=== PATIENT | female | born 1965 | race Caucasian/White ===

== ENCOUNTER 2017-06-02 07:27 | Day surgery (SDC) | payer BC ==
[2017-06-02] MEDS ORDERED: PROPOFOL 500 MG/50 ML EMU IV ONE (08:14)
[2017-06-02 08:52] VITALS: TEMP 97.2
[2017-06-02 09:06] VITALS: BP 128/82; PULSE 63; RESP 18; O2SAT 100
== END 2017-06-02 09:24 | disposition home or self-care (01) ==
LOC: SURG 07:27
PROVIDERS: ATTEND Surgery
DX: Z12.11 Encounter for screening for malignant neoplasm of colon (principal); Z86.010 Personal history of colon polyps
CPT/HCPCS: J2704

== ENCOUNTER 2017-12-04 17:10 | Observation (INO) | payer BC ==
[2017-12-04] MEDS ORDERED: ONDANSETRON HCL 4 MG/2 ML SOL ONE (17:27)
[2017-12-04] MEDS ORDERED: MORPHINE SULFATE 10 MG/ML SOL ONE (17:27)
[2017-12-04] MEDS ORDERED: MORPHINE SULFATE 10 MG/ML SOL IV ONE (17:29)
[2017-12-04] MEDS ORDERED: ONDANSETRON HCL 4 MG/2 ML SOL IV ONE (17:30)
[2017-12-04] MEDS: SODIUM CHLORIDE 0.9% FLUSH 10 ML SOL IV PRN ×3 (17:31→22:19)
[2017-12-04] MEDS: SODIUM CHLORIDE 0.9% 1000ML 1,000 ML IV SCH ×2 (17:32→21:46)
[2017-12-04 17:42] LABS: ALBUMIN 3.3 gm/dl (3.4-5.0); CALCIUM 9.3 mg/dl (8.5-10.1); POTASSIUM 3.7 mMol/L (3.5-5.1)
[2017-12-04 18:45] VITALS: RESP 16
[2017-12-04] MEDS ORDERED: KETOROLAC TROMETHAMINE 30 MG/ML SOL IV ONE (19:02)
[2017-12-04] MEDS ORDERED: KETOROLAC TROMETHAMINE 30 MG/ML SOL ONE (19:06)
[2017-12-04] MEDS ORDERED: APAP/HYDROCODONE 325/5 TAB PO PRN (21:13)
[2017-12-04] MEDS ORDERED: PROMETHAZINE HYDROCHLORIDE 25 MG/ML SOL IV PRN (21:15)
[2017-12-04] MEDS ORDERED: LEVOFLOXACIN 25 MG/ML 750 MG in SODIUM CHLORIDE 0.9% 50 ML 50 ML IV SCH (21:15)
[2017-12-04] MEDS ORDERED: CODEINE PHOSPHATE PO PRN (21:30)
[2017-12-04] MEDS ORDERED: ALBUTEROL HFA 60 PUFF/INHALER INH PRN (21:30)
[2017-12-04] MEDS ORDERED: BENZONATATE 200 MG SGL PO PRN (21:30)
[2017-12-04] MEDS ORDERED: [UNRECOGNIZED DRUG - OTHER] PO PRN (21:30)
[2017-12-04] MEDS ORDERED: GUAIFENESIN PO PRN (21:30)
[2017-12-04] MEDS ORDERED: LEVOFLOXACIN 25 MG/ML SOL IV ONE (21:32)
[2017-12-05] MEDS: SODIUM CHLORIDE 0.9% 1000ML 1,000 ML IV SCH ×2 (00:19→00:20)
[2017-12-05] MEDS ORDERED: ALOE VERA NAS SCH (09:00)
[2017-12-05] MEDS ORDERED: GLYCERIN NAS SCH (09:00)
[2017-12-05] MEDS ORDERED: FLUTICASONE PROPIONATE INH SCH (09:00)
[2017-12-05] MEDS ORDERED: Non-Formulary Medication MISC (Fluticasone/Salmeterol 250/50 1 PUFF) INH SCH (09:00)
[2017-12-05] MEDS ORDERED: FISH OIL 500 MG CAP PO SCH (09:00)
[2017-12-05] MEDS ORDERED: CALCIUM CARBONATE 500 MG TAB PO SCH (09:00)
[2017-12-05] MEDS ORDERED: MULTIVITAMIN2 1 EA TAB PO SCH (09:00)
[2017-12-05] MEDS ORDERED: VITAMIN D PO SCH (09:00)
[2017-12-05] MEDS ORDERED: FLUTICASONE PROPIONATE SPR NAS SCH (10:00)
[2017-12-05] MEDS ORDERED: CODEINE/GUAIFENESIN 5 ML ML PO PRN ×2 (10:00)
[2017-12-05] MEDS ORDERED: FLUTICASONE/SALMETEROL 250/50 1 PUFF DSK INH SCH (10:00)
[2017-12-05] MEDS ORDERED: CHOLECALCIFEROL 1,000 IU TAB PO SCH (10:15)
[2017-12-05 12:30] VITALS: BP 135/88; PULSE 81; TEMP 98.6; O2SAT 99
[2017-12-05] MEDS ORDERED: LEVOFLOXACIN 750MG/150 ML (PREMIX) IV SCH (21:00)
[2017-12-05] MEDS ORDERED: PREDNISONE 20 MG TAB PO SCH (21:00)
== END 2017-12-05 14:45 | disposition home or self-care (01) ==
LOC: ED 17:10 → UNDOADMOB 20:39 → ACUTE CARE 20:39
PROVIDERS: ADMIT Family Medicine; ATTEND Family Medicine
DX: J18.9 Pneumonia, unspecified organism (principal); R10.31 Right lower quadrant pain
CPT/HCPCS: 74178; 80053; 85610; 96365; 96374; 96375; 99218; 99285; J1885; J1956; J2270; J2405; J2550; Q9967; A9270-GY

== ENCOUNTER 2018-10-17 21:14 | Emergency (ER) | payer BC ==
[2018-10-17] MEDS ORDERED: BACITRACIN 500 U/GM OIN TOP ONE ×2 (21:33→21:48)
[2018-10-17 22:21] VITALS: BP 136/79; PULSE 79; RESP 20; TEMP 96.8; O2SAT 97
== END 2018-10-17 21:50 | disposition home or self-care (01) ==
LOC: ED 21:14
DX: S61.002D Unspecified open wound of left thumb without damage to nail, subsequent encounter (principal)
CPT/HCPCS: 99282; A9270-GY